=== PATIENT | female | born 1970 | race Two or more races ===

== ENCOUNTER 2022-08-23 09:57 | Inpatient (IN) | payer OTHER ==
[~2022-08-23] VITALS: Ht 154.9 cm; Wt 93.0 kg
[2022-09-03] MEDS ORDERED: MIRENA1 EACH (12:05)
[2022-09-05] MEDS ORDERED: IBUPROFEN800 MG PO (07:47)
[2022-09-05] MEDS ORDERED: GABAPENTIN300 MG PO (07:48)
== END 2022-09-05 11:25 | disposition home or self-care (01) | DRG 743 ==
LOC: OB/GYN 08-27 10:15 → O/R 09-03 08:10 → OB/GYN 09-03 10:15
PROVIDERS: ADMIT Obstetrics & Gynecology Gynecology; ATTEND Obstetrics & Gynecology Gynecology
PROC: 0UT70ZZ Resection of Bilateral Fallopian Tubes, Open Approach (ICD-10-PCS; 2022-09-03)
PROC: 3E0F7GC Introduction of Other Therapeutic Substance into Respiratory Tract, Via Natural or Artificial Opening (ICD-10-PCS; 2022-09-03)
PROC: 0UT90ZZ Resection of Uterus, Open Approach (ICD-10-PCS; principal; 2022-09-03 13:30)
DX: D25.1 Intramural leiomyoma of uterus (principal); D25.2 Subserosal leiomyoma of uterus; N72 Inflammatory disease of cervix uteri; N80.03 Adenomyosis of the uterus; Z20.822 Contact with and (suspected) exposure to COVID-19; J45.20 Mild intermittent asthma, uncomplicated

== ENCOUNTER 2022-08-28 15:21 | Outpatient (CLI) | payer OTHER | END 2022-08-28 15:27 | disposition home or self-care (01) | LOC: LAB 15:21 | PROVIDERS: ATTEND Obstetrics & Gynecology Gynecology | DX: Z20.828 Contact with and (suspected) exposure to other viral communicable diseases (principal) ==